=== PATIENT | male | born 1945 | race Caucasian/White ===

== ENCOUNTER 2021-06-15 16:14 | Emergency (ER) | payer OTHER, MEDICARE, BC ==
[2021-06-15] MEDS ORDERED: Sodium Chloride 0.9% 10 ML Syringe FLUSH PRN (16:18)
[2021-06-15] MEDS ORDERED: Lidocaine 1% 10 ML MDV INJECT ONE (17:57)
[2021-06-15] MEDS ORDERED: HYDROmorphone 1 MG/ML Syringe IVPUSH ONE (17:57)
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
--- NOTE | 2021-06-15 19:46 | CR ---
Chest: Frontal view of the chest was obtained. Comparison: No prior chest imaging is available. Heart has a slight left ventricular configuration. Tortuous thoracic aorta is noted. Lungs are clear with no acute parenchymal change. Scattered degenerative change is seen within the spine. Impression: 1. Findings as noted above. 2. Nothing acute is seen. Diagnostic code #2
--- NOTE | 2021-06-15 19:47 | CR ---
Right shoulder: 3 views of the right shoulder were obtained. Comparison: No prior shoulder study is available. Small fracture is noted at the tip of the acromion process. Glenohumeral joint and acromioclavicular joint are within normal limits. No additional fracture or other abnormality is appreciated. Impression: 1. Small fracture within the tip of the acromion process. 2. No additional abnormality is appreciated on right shoulder study. Diagnostic code #3
--- NOTE | 2021-06-15 19:55 | CR ---
Left hand: 4 views left hand were obtained. Comparison: No prior hand study is available. Dislocation is noted within the CMC joint of the thumb. Severe joint space narrowing is noted between the radius and navicular bone. Navicular bone is deformed. There is also widening of the distance between the navicular bone and lunate compatible with chronic ligamentous rupture. Small well-defined bony density is noted off the radial styloid process which is old. No acute fracture or or other abnormality is appreciated. Impression: 1. Dislocation within the CMC joint of the thumb. 2. Chronic degenerative change as noted above. Diagnostic code #3
--- NOTE | 2021-06-15 19:56 | CR ---
Left hand: 2 views left hand were obtained. Comparison: Prior hand study performed earlier on same day (4:42 PM). Previous dislocation within the CMC joint of the thumb has been reduced. Degenerative change noted between the radius and navicular bone remains. 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 Well-corticated bony density is noted off the radial styloid process. No acute fracture or other abnormality is appreciated. Impression: 1. Previously dislocation involving the base of the thumb has been reduced. 2. Diffuse degenerative change remains unchanged. Diagnostic code #2
--- NOTE | 2021-06-15 19:58 | CT ---
Head CT Technique: Multiple axial sections through the brain were obtained. Intravenous contrast was not utilized. Reconstructed coronal and sagittal images were obtained. Comparison: No prior intracranial imaging is available. Findings: Ventricles along with basal cisterns and sulci over the convexities are mildly prominent. Mild diminished density is seen within small portions of the periventricular white matter compatible with minimal small vessel ischemic demyelination change. No other abnormal parenchymal densities are seen. No evidence of intracranial hemorrhage is seen. No midline shift or mass-effect is seen. Bone window settings were reviewed. Visualized mastoid sinuses and paranasal sinuses show nothing acute. No acute calvarial abnormality is appreciated. Impression: 1. Mild senescent change. 2. Nothing acute is seen on noncontrast head CT study. Diagnostic code #2 I agree with preliminary report from [facility], finalized on 06/15/21, 6:09 PM CDT, code 1
--- NOTE | 2021-06-15 20:00 | CT ---
CT cervical spine Technique: Multiple axial sections were obtained from above C1 inferiorly to the bottom of T2. Reconstructed coronal and sagittal images were obtained. Comparison: No prior cervical spine imaging is available. Findings: Mild disc space narrowing is noted at C3-4 and C4-5. Severe disc space narrowing is noted at C5-6 and C6-7. Anterior osteophytes are noted most prominent at C4-5, C5-6 and C6-7. Posterior osteophytes are noted at C5-6 and C6-7. Diffuse degenerative apophyseal change is seen throughout the cervical spine. No bony central canal stenosis is seen. Mild bilateral neural foraminal stenosis is seen at C5-6. Moderate right-sided neural foraminal stenosis is noted C6-7. Small ligamentum nuchal calcification is seen. Diffuse degenerative change is seen throughout the uncovertebral joints most prominent at C5-6 and C6-7. No acute fracture is seen. No acute subluxation is seen. Impression: 1. Diffuse degenerative change as noted above. 2. No acute bony abnormality is appreciated on CT study of the cervical spine. Diagnostic code #3 I agree with preliminary report from [facility], finalized on 06/15/21, 6:07 PM CDT, code 1
== END 2021-06-15 19:40 | disposition home or self-care (01) ==
LOC: JD.ED 16:14
DX: S63.105A Unspecified dislocation of left thumb, initial encounter (principal); S40.211A Abrasion of right shoulder, initial encounter; I10 Essential (primary) hypertension; Z79.899 Other long term (current) drug therapy; V29.9XXA Motorcycle rider (driver) (passenger) injured in unspecified traffic accident, initial encounter; Y92.410 Unspecified street and highway as the place of occurrence of the external cause; Y93.55 Activity, bike riding
CPT/HCPCS: 26670; 36415; 70450; 71045; 72125; 73030; 73120; 73130; 80053; 83690; 85025; 96374; 99285; J1170; 26770; 99283